=== PATIENT | female | born 1955 | race African-American/Black ===

== ENCOUNTER 2016-06-15 19:12 | Emergency (ER) | payer MEDICARE, MEDICAID ==
[~2016-06-15] VITALS: Ht 167.6 cm; Wt 73.0 kg
[~2016-06-15 19:12] MED LIST: AMLO1CAP5 PO; ASPI-1035 PO; ESOM40CA PO; FESO8TAB PO; IOHEXOL-300 100 ML BOTTLE ONE; ROSU10TA PO; SODIUM CHLORIDE 0.9% 10ML VIAL ONE
[2016-06-15] MEDS ORDERED: SODIUM CHLORIDE 0.9% 1,000 ML IV ONE (22:15)
[2016-06-15] MEDS ORDERED: ALBUTEROL (0.083%) 2.5MG/3ML NEB HHN ONE (22:15)
[2016-06-15] MEDS ORDERED: ONDANSETRON HCL 4MG/2ML VIAL IV ONE (22:15)
[2016-06-15] MEDS ORDERED: MORPHINE SULFATE 4 MG/ML CPJ (NOT FOR IM USE) IV ONE (22:15)
[2016-06-15] MEDS ORDERED: FAMOTIDINE 20MG/2ML VIAL IV ONE (22:15)
[2016-06-15 22:39] LABS: HEMATOCRIT. 35.9 % (36.0-48.0); HEMOGLOBIN. 11.6 g/dL (12.0-16.0); MEAN CORPUSCULAR HEMOGLOBIN 27.1 pg (28.0-32.0); MEAN CORPUSCULAR HGB CONC 32.3 g/dL (31.0-37.0); PLATELET 290 x1000/uL (130-400); RED BLOOD CELL COUNT 4.27 mill/uL (4.2-5.4); RED CELL DISTRIBUTION WIDTH 15.7 % (11.6-14.6); WHITE BLOOD COUNT 6.9 x1000/uL (4.5-11.0)
[2016-06-15 22:43] LABS: CHLORIDE 103 mEq/L (98-107); INDEX HEMOLYSI 1 (1-3); INDEX ICTERIC 1 (1-4); INDEX LIPEMIC 1 (1-3)
[2016-06-15 22:48] LABS: ALANINE AMINOTRANSFERASE 29 IU/L (13-61); ALBUMIN 3.5 g/dL (3.4-5.0); ANION GAP 10; CALCIUM 8.6 mg/dL (8.5-10.1); CARBON DIOXIDE 31 mEq/L (21-32); UREA NITROGEN BLOOD 8 mg/dL (7-21)
[2016-06-15 22:50] LABS: PLATELET ESTIMATE NORMAL
[2016-06-15 22:51] LABS: eGFR > 60 mL/min (>60)
[2016-06-15 23:50] LABS: CLARITY URINE CLEAR (CLEAR); COLOR URINE YELLOW (YELLOW); GLUCOSE URINE NEGATIVE (NEGATIVE); KETONES URINE NEGATIVE (NEGATIVE); LEUKOCYTE ESTERASE URINE NEGATIVE (NEGATIVE); NITRITE URINE NEGATIVE (NEGATIVE); OCCULT BLOOD URINE NEGATIVE (NEGATIVE); PROTEIN URINE NEGATIVE (NEGATIVE)
[2016-06-16 02:00] VITALS: BP 110/70
[2016-06-16] MEDS ORDERED: ALBUTEROL (0.083%) 2.5MG/3ML NEB ONE (02:57)
[2016-06-16] MEDS: POTASSIUM CHLORIDE 20MEQ TABLET SR PO SCH ×2 (03:30)
== END 2016-06-16 03:44 | disposition home or self-care (01) ==
LOC: ER 19:52
DX: R05 Cough (principal); R53.1 Weakness; R19.7 Diarrhea, unspecified; R10.9 Unspecified abdominal pain; R11.10 Vomiting, unspecified; I10 Essential (primary) hypertension; E78.00 Pure hypercholesterolemia, unspecified; Z79.82 Long term (current) use of aspirin; Z98.890 Other specified postprocedural states
CPT/HCPCS: 36415; 71020; 74177; 80053; 81003; 85007; 85027; 94640; 96361; 96374; 96375; 99285; A4216; J2270; J2405; J3490; J7030; J7611; Q9967

== ENCOUNTER 2016-11-15 13:37 | Emergency (ER) | payer MEDICARE, MEDICAID ==
[~2016-11-15] VITALS: Ht 170.2 cm; Wt 72.0 kg
[~2016-11-15 13:37] MED LIST changes: -ASPI-1035 PO; +ASPI-1159 PO; -IOHEXOL-300 100 ML BOTTLE ONE; -SODIUM CHLORIDE 0.9% 10ML VIAL ONE
[2016-11-15] MEDS ORDERED: KETOROLAC 60MG/2ML VIAL IM ONE (18:45)
[2016-11-15 19:09] VITALS: BP 119/95
== END 2016-11-15 20:38 | disposition home or self-care (01) ==
LOC: ER 18:52
DX: S69.91XA Unspecified injury of right wrist, hand and finger(s), initial encounter (principal); M19.90 Unspecified osteoarthritis, unspecified site; E78.00 Pure hypercholesterolemia, unspecified; I10 Essential (primary) hypertension; Z98.890 Other specified postprocedural states; Z79.82 Long term (current) use of aspirin; W01.0XXA Fall on same level from slipping, tripping and stumbling without subsequent striking against object, initial encounter; Y93.89 Activity, other specified; Y92.89 Other specified places as the place of occurrence of the external cause
CPT/HCPCS: 73130; 96372; 99284; J1885

== ENCOUNTER 2018-01-11 13:02 | Emergency (ER) | payer MEDICARE, MEDICAID ==
[~2018-01-11] VITALS: Ht 170.2 cm; Wt 82.0 kg
[2018-01-11] MEDS ORDERED: CYCLOBENZAPRINE 10MG TABLET PO ONE (21:00)
[2018-01-11] MEDS ORDERED: HYDROCODONE/ACETAMINOPHEN 5/325MG TABLET PO ONE (21:00)
[2018-01-11 22:21] VITALS: BP 118/68
== END 2018-01-11 22:23 | disposition home or self-care (01) ==
LOC: ER 13:02
DX: S33.140A Subluxation of L4/L5 lumbar vertebra, initial encounter (principal); G89.29 Other chronic pain; M54.5 Low back pain; M85.88 Other specified disorders of bone density and structure, other site; E78.00 Pure hypercholesterolemia, unspecified; I10 Essential (primary) hypertension; Z98.890 Other specified postprocedural states; V43.62XA Car passenger injured in collision with other type car in traffic accident, initial encounter; Y93.89 Activity, other specified; Y92.488 Other paved roadways as the place of occurrence of the external cause
CPT/HCPCS: 72100; 99284